=== PATIENT | female | born 1950 | race Caucasian/White ===

== ENCOUNTER 2017-12-20 09:19 | Day surgery (SDC) | payer MEDICARE, OTHER ==
[~2017-12-20] VITALS: Ht 157.5 cm; Wt 72.0 kg
[2017-12-20] MEDS ORDERED: IOHEXOL 350 MG/ML 100 ML BTL (for Cath Lab) OTHER ONE (09:20)
[2017-12-20 10:30] VITALS: BP 116/67; PULSE 63; RESP 18; O2SAT 100
[2017-12-20 10:41] LABS: AUTOMATED NEUTROPHIL # 3.1 TH/MM3 (1.8-7.7); BASOPHIL % 0.3 % (0.0-2.0); EOSINOPHIL # 0.1 TH/MM3 (0-0.4); EOSINOPHIL % 2.4 % (0.0-4.0); HEMATOCRIT 38.8 % (35.0-46.0); HEMOGLOBIN 13.3 GM/DL (11.6-15.3); LYMPH % 32.5 % (9.0-44.0); LYMPHOCYTE # 1.8 TH/MM3 (1.0-4.8); MEAN CELL VOLUME 99.4 FL (80.0-100.0); MEAN CORPUSCULAR HEMOGLOBIN 34.1 PG (27.0-34.0); MEAN CORPUSCULAR HGB CONC 34.3 % (32.0-36.0); MONO % 10.5 % (0.0-8.0); MONOCYTE # 0.6 TH/MM3 (0-0.9); NEUT % 54.3 % (16.0-70.0); PLATELET COUNT 230 TH/MM3 (150-450); RED CELL DISTRIBUTION WIDTH 13.1 % (11.6-17.2); WHITE BLOOD COUNT 5.6 TH/MM3 (4.0-11.0)
[2017-12-20 10:50] LABS: PROTHROMBIN TIME - PATIENT 10.3 SEC (9.8-11.6)
[2017-12-20] MEDS ORDERED: LIPI10TA PO (10:54)
[2017-12-20] MEDS ORDERED: TOPI25TA7 PO (10:54)
[2017-12-20] MEDS ORDERED: PROP10TA6 PO (10:54)
[2017-12-20] MEDS ORDERED: ASPI-183 PO (10:54)
[2017-12-20] MEDS ORDERED: PREV15CA20 PO (10:54)
[2017-12-20] MEDS ORDERED: METH10TA PO (10:54)
[2017-12-20] MEDS ORDERED: CYCL5TAB PO (10:54)
[2017-12-20 11:00] LABS: CALCIUM 9.2 MG/DL (8.5-10.1); CREATININE 1.07 MG/DL (0.50-1.00)
[2017-12-20] MEDS ORDERED: HYDROCORTISONE SOD SUCCINATE 100 MG VIAL IV SCH (11:30)
[2017-12-20] MEDS ORDERED: NS 1000P @30 MLS/HR (KVO) IV SCH (11:30)
[2017-12-20] MEDS ORDERED: HEPARIN-NS/PF FLUSH BAG 2,000 ML IV FLUSH ONE (11:39)
[2017-12-20] MEDS ORDERED: HYDROCORTISONE SOD SUCCINATE 100 MG VIAL ONE (11:45)
[2017-12-20] MEDS ORDERED: diphenhydrAMINE HCL 50 MG/ML VIAL ONE (11:54)
--- NOTE | 2017-12-20 12:38 | CATHPROC ---
[place] HIS Report Study Information Study Number Admission Scheduled Start Study Start [id number] Dec 20 2017 9:19AM 12/20/2017 Dec 20 2017 11:30AM Study Type [place] Service Left/Possible PCI Cardiac Catheterization Admit Source Facility Department Other [facility] - Marketing Systems Analyst Physician and Clinical Staff Initial Beena Venegas Talcer Gladys Boyd,RN Other Ester Bellamy ,RT(R) Recorder Sarah Dubois RCIS TECH2 Recorder Ester Bellamy ,RT(R) Scrub Gladys MckinleyRT(R) Procedures Performed Procedure Location (Site) Vessel Name Angiogram LV LV Ventricle Coronary Angiograms LCA Left Coronary Coronary Angiograms RCA Right Coronary L Heart Cath Equipment Time Environmental Maintenance Worker Description Size Mfg Part Number Used/Scraped STARCLOSE, VASCULAR CLOSER [id number] 12:13 [employer] FR 6 Used SYSTEM *[id number] TRANSDUCER, TRUWAVE [id number] 11:31 ROBERTS DURAN * Used W/STOCKCOCK *[id number] 534-620T *[id number] 534-621T *[id number] PIGTAIL ANG. 145 INFINITI 534-652S CATHETER *[id number] 11:31 [employer] IND[employer] PACK, CCL CUSTOM * Used *[id number] 11:31 MEDLINE PACER PEN, SKIN DUAL W/ RULER * Used *[id number] 11:31 [employer] PTY MEDICAL SHEATH, FR6.5 PRELUDE 11CM FR 6.5 038ACT Used *[id number] 11:31 [employer] PTY MEDICAL WIRE, 3MMJ .035 180CM 180CM Used *[id number] 11:31 NAMIC MANIFOLD, 4 PORT * Used *[id number] 11:31 [employer] OMNIPAQUE, 350 MG, 150ML 150ML [id number] Used [id number] 11:31 [employer] BLANK[employer],WARM AIR CCL * Used *[id number] History: Current Medications Medication Dosage/Unit Route Frequency Last Date/Time Taken Statins (any) ASA History: Allergies Allergy Reaction Tetracyclines Sulfa (Sulfonamide Antibiotics) codeine oxycodone acetaminophen epinephrine butorphanol lubiprostone History: Risk Factors Family History of Hypertension Dyslipidemia Previous NM Previous Heart Failure Premature CAD Yes Yes Yes No No Prior Valve Prior PCI Prior CABG Surgery No No No Cerebrovascular Peripheral Artery Chronic Lung On Dialysis Diabetes Disease Disease Disease No No No No No History: Stress Tests Stress or Imaging Studies Performed Yes Standard Exercise Stress Test No Stress Echo No Stress Test SPECT Stress Test SPECT Result Stress Test SPECT Ischemia Risk/Extent Yes Positive High Stress Test CMR No Cardiac CTA Coronary Calcium Score No No History: Other Current Smoker No Labs Hgb (g/dl) Hct (%) WBC (l/cumm) Platelets (thousands) 11.60-17.00 35.00-51.00 4.00-11.00 150.00-450.00 13.3 38.8 5.6 230 BUN (mg/dl) Creatinine (mg/dl) BUN:Creatinine (1:x) 7.00-18.00 0.50-1.30 10.00-20.00 18 1.1 16.4 INR (PTT:PT) 0.90-1.10 1 CPK-MB (ng/ML) 0.50-3.60 Not Drawn Medication Medication Total Dose (Bolus/Oral) Medication Total Dosage/Unit 1% XYLOCAINE 20 mL BENADRYL 25 mg FENTANYL 50 mcg NTG (IC) 150 mcg SOLU-CORTEF 100 mg Medications (Bolus/Oral) Medication Time Given Dosage/Unit Administered By Reason SOLU-CORTEF 12/20/2017 11:47:00 AM 100 mg Hesher, Gladys 100 mg SOLU-CORTEF given in lab by Gladys Boyd RN in Left Antecubital via Peripheral IV. Ordered by Beena Martinez. FENTANYL 12/20/2017 11:54:00 AM 50 mcg Hesher, Gladys 50 mcg FENTANYL given in lab by Gladys Boyd, ROSEMARIE via Peripheral IV. Ordered by Beena Martinez. BENADRYL 12/20/2017 11:55:00 AM 25 mg Hesher, Gladys 25 mg BENADRYL given in lab by Gladys Boyd, ROSEMARIE via Peripheral IV. Ordered by Beena Martinez. 1% XYLOCAINE 12/20/2017 11:57:03 AM 20 mL Beena Martinez 20 mL 1% XYLOCAINE given in lab by Beena Martinez via Subcutaneous. Ordered by Beena Martinez. NTG (IC) 12/20/2017 12:02:53 PM 150 mcg Beena Martinez 150 mcg NTG (IC) given in lab by Beena Martinez via Intra-coronary. Ordered by Beena Martinez. Medication (Drip) Medication Time Given Dosage/Unit Concentration/Unit Diluent (ml) Solution IV Solutions 12/20/2017 11:34:00 AM 50 mL (IV) NaCl .9 IV Solutions given in lab by Gladys Boyd RN in Left Antecubital via Peripheral IV. Pump/Drip Flow using NaCl .9. Ordered by Beena Martinez. Initial Case Assessment Cardiovascular HR NIBP Chest Pain 80 142/70 0 Edema Present Skin color Skin None Normal Warm Dry Circulatory - Right Pulses Dorsalis Pedis Femoral 2 3 Scale (0,1,2,3,4,d) Circulatory - Left Pulses Dorsalis Pedis Femoral 2 3 Scale (0,1,2,3,4,d) Circulatory - Lower Extremities Color Lower Right Color Lower Left Normal Normal Neurological State Oriented to time-place- Alert Moves all extremities person Respiration - General Respiration Rate SpO2 (%) (B/min) 11 100 Final Case Assessment Cardiovascular HR NIBP Chest Pain 67 129/72 0 Edema Present Skin color Skin None Normal Warm Dry Circulatory - Right Pulses Dorsalis Pedis Femoral 2 3 Scale (0,1,2,3,4,d) Circulatory - Left Pulses Dorsalis Pedis Femoral 2 3 Scale (0,1,2,3,4,d) Circulatory - Lower Extremities Color Lower Right Color Lower Left Normal Normal Neurological State Oriented to time-place- Alert Moves all extremities person Respiration - General Respiration Rate SpO2 (%) (B/min) 20 99 Chronological Log Time Study Chronological Log IV Solutions given in lab by Gladys Boyd, ROSEMARIE in Left Antecubital via Peripheral IV. Pump/Dri p Flow using NaCl .9. 11:34:00 Ordered by Beena Martinez. 11:34:32 Patient arrived via Bed. 11:34:34 Patient Name, D.O.B, / Armband Verified By R.N. Vitals capture started with the following parameters, Patient=Adult, Interval=5 min, Initial Pr aagewm=759 mmHg, 11:39:11 Deflation Rate=5 mmHg, Cuff placed on Right Arm 11:39:53 HR=73 bpm, TRVP=927/78 mmhg, LxU9=997.0 %, Resp=8 B/min 11:44:01 Pre-op and post- op instructions given; patient acknowledges understanding of instructions. 11:44:02 Verbal Stimulation=2 Physical Stimulation=2 Airway=2 Respiration=2 TOTAL=8. (0=absent, 1=li mited, 2=present) 11:44:19 Presedation assessment performed by Marketing Systems Analyst RN. 11:44:21 Patient has been NPO for More than 6Hrs. 11:44:22 Skin Breakdown- none per patient 11:44:24 Lulu Prominences Protected 11:44:27 A # 20 IV was noted in the Antecubital (left). Grade = 0 11:44:50 HR=65 bpm, AGIS=905/70 mmhg, SrJ3=001.0 %, Resp=9 B/min, Pain=0, Rey=8, Carrizales=2 11:45:00 MD arrived. 11:46:53 Consent signed by the physician and the patient and verified by the Marketing Systems Analyst staff. 100 mg SOLU-CORTEF given in lab by Gladys Boyd, RN in Left Antecubital via Peripheral IV. Or dered by Juan, 11:47:00 [facility]. 11:48:22 History and physical on the chart or being dictated. Assessment: Initial Case, HR=80 BPM, QTOB=330/70 mmhg, Chest Pain=0, Edema=None, Color=Normal, Skin = Warm, Dry Right Pulses: Kuldip Ped=2, Femoral=3 Left Pulses: Kuldip Ped=2, Femoral=3 11:48:24 Lower Right Extremities: Color=Normal Lower Left Extremities: Color=Normal Neurological: State=Alert, Ox3, FOFANA Respiration: Resp=11 B/min, UxT9=703 % 11:49:02 Bilateral groins prepped with 2% chlorhexidine, and draped after a 3 minute waiting time. 11:49:49 HR=65 bpm, QHXH=997/75 mmhg, ChB9=225.0 %, Resp=15 B/min, Pain=0, Rey=8, Carrizales=2 Time Out. Correct patient, correct procedure, correct physician, power injector loaded with con trast with surgical team 11:53:46 present. Time Out Concurred by MD and individual staff in procedure. 11:54:00 50 mcg FENTANYL given in lab by Gladys Boyd, RN via Peripheral IV. Ordered by Juan As hraf. 11:54:51 HR=67 bpm, QQLS=512/77 mmhg, WbF7=810.0 %, Resp=20 B/min, Pain=0, Rey=8, Carrizales=2 11:55:00 25 mg BENADRYL given in lab by Gladys Boyd, ROSEMARIE via Peripheral IV. Ordered by Apolinar Martinez. 11:55:27 Reference ECG taken 11:55:34 Pressure channel 1 zeroed. 11:56:06 Case Start 11:57:03 20 mL 1% XYLOCAINE given in lab by Beena Martinez via Subcutaneous. Ordered by Domenico Martinez af. 11:59:00 Access site was Right Femoral Artery. 11:59:38 A SHEATH, FR6.5 PRELUDE 11CM FR 6.5 was advanced into the Fem Art (right) using the Percuta neous technique. 11:59:52 HR=64 bpm, WYJW=506/73 mmhg, SpO2=99.0 %, Resp=14 B/min, Pain=0, Rey=8, Carrizales=2 A JL 4.0 INFINITI CATHETER FR 6 was advanced over a wire. OMNIPAQUE, 350 MG, 150ML 150ML was us ed for 12:01:08 injections. Recorded Pressure: Ao, HR=65, Condition=Condition 1 12:02:03 (Aorta) Ao 140/66/97 12:02:53 150 mcg NTG (IC) given in lab by Beena Martinez via Intra-coronary. Ordered by Domenico Martinez af. 12:03:41 The LCA was injected and visualized at various angles. OMNIPAQUE, 350 MG, 150ML 150ML used . 12:04:51 HR=64 bpm, FSHW=224/71 mmhg, SpO2=99.0 %, Resp=14 B/min, Pain=0, Rey=8, Carrizales=2 12:05:56 Catheter was removed A JR 4.0 INFINITI CATHETER FR 6 was advanced over a wire. OMNIPAQUE, 350 MG, 150ML 150ML was us ed for 12:06:00 injections. 12:08:35 The RCA was injected and visualized at various angles. OMNIPAQUE, 350 MG, 150ML 150ML used . 12:09:03 Catheter was removed A PIGTAIL ANG. 145 INFINITI CATHETER FR 6 was advanced over a wire. OMNIPAQUE, 350 MG, 150ML 15 0ML was 12:09:09 used for injections. 12:09:46 HR=69 bpm, ASNM=931/82 mmhg, SpO2=98.0 %, Resp=12 B/min, Pain=0, Rey=8, Carrizales=2 Recorded Pressure: LV, HR=70, Condition=Condition 1 12:10:28 (Left Ventricle) LV 151/7/17 12:11:16 The LV was injected at 10 cc/sec for a total of 24. OMNIPAQUE, 350 MG, 150ML 150ML used. Recorded Pressure: LV, Ao, HR=68, Condition=Condition 1 12:12:33 (Left Ventricle) LV 139/5/22, (Aorta) Ao 139/66/98 12:13:04 Catheter was removed 12:13:53 An injection in the Fem Art (right) was made through the SHEATH, FR6.5 PRELUDE 11CM FR 6.5 . 12:14:21 STARCLOSE, VASCULAR CLOSER SYSTEM FR 6 placement in the Fem Art (right) 12:14:51 HR=66 bpm, KYBN=583/72 mmhg, YxS0=063.0 %, Resp=15 B/min, Pain=0, Rey=8, Carrizales=2 12:18:34 Case End Assessment: Final Case, HR=67 BPM, TXBB=025/72 mmhg, Chest Pain=0, Edema=None, Color=Normal, S kin = Warm, Dry Right Pulses: Kuldip Ped=2, Femoral=3 Left Pulses: Kuldip Ped=2, Femoral=3 12:18:38 Lower Right Extremities: Color=Normal Lower Left Extremities: Color=Normal Neurological: State=Alert, Ox3, FOFANA Respiration: Resp=20 B/min, SpO2=99 % 12:19:50 HR=66 bpm, MFXF=393/74 mmhg, MyU9=920.0 %, Resp=8 B/min, Pain=0, Rey=8, Carrizales=2 12:21:21 Catheter(s) removed without difficulty 12:21:24 Sterile dressing applied to site 12:21:24 No case complications noted. 12:21:25 Cine recording checked. 12:21:26 Bedside Report will be given. 12:21:36 A Left Heart Cath was performed. 12:24:22 Vitals capture stopped. 12:26:51 Patient moved to stretcher End Study - Contrast Media Used In Study Contrast Total Opened (mL) Total Used (mL) Total Wasted (mL) Omnipaque 70 70 0 End Study - Maximum Contrast Load Max Contrast Load (mL) 327.3 End Study - Radiation Exposure Fluoro Time (minutes) 2.0 End Study - Patient Disposition Complications Transferred To Interventional Outcome No Telemetry Bed No attempt made
[2017-12-20] MEDS ORDERED: BACITRACIN OINT 0.9 GM PKT TOP ONE (13:00)
[2017-12-20] MEDS ORDERED: ONDANSETRON HCL 4 MG/2 ML VIAL IV PUSH PRN (13:00)
[2017-12-20] MEDS ORDERED: SODIUM CHLOR 0.9% 1000 ML INJ 1,000 ML IV SCH (13:00)
[2017-12-20] MEDS ORDERED: SODIUM CHLOR 0.9% 250 ML INJ 250 ML IV PRN (13:00)
[2017-12-20] MEDS ORDERED: MISC INFORMATION XX ONE (13:00)
[2017-12-20] MEDS ORDERED: ATROPINE SULFATE 1 MG/ML VIAL IV PUSH PRN (13:00)
--- NOTE | 2017-12-20 13:08 | EKG ---
Date Performed: 12/20/2017 Time Performed: 10:54:02 PTAGE: 67 years EKG: Baseline artifact present Sinus rhythm . Anterior T wave changes are nonspecific Low QRS voltages in precordial leads Borderline ECG NO PREVIOUS TRACING DOCTOR: Jd Kirk Interpretating Date/Time 12/20/2017 13:07:50
--- NOTE | 2017-12-20 13:11 | MA ---
cc: Beena Martinez MD, Ashraf S MD Melo, Haroldo MD DATE: 12/20/2017 DESCRIPTION OF PROCEDURE: 1. Left heart catheterization. 2. Coronary arteriogram. 3. Left ventriculogram. 4. Right femoral arteriogram. 5. Right femoral arteriotomy site closure using a StarClose device. LEACHER: Chasity Martinez MD EQUIPMENT USED: 6-[place] short sheath, 0.035 J guidewire, 6-[place] JL4, JR4, and pigtail diagnostic catheters. INDICATIONS: Presentation with progressive dyspnea on exertion and abnormal nuclear stress study for 2 areas of ischemia, but with transient ischemic dilatation noted for which, because of her persistent symptoms and the high risk criteria of her stress test, she was advised to proceed with a cardiac catheterization. PROCEDURE: After obtaining informed consent, the right groin was prepped in the usual sterile fashion. 15 mL of 1% lidocaine used for local anesthesia. Using the modified Seldinger technique, the femoral artery was cannulated and a 6-[place] sheath was inserted in the right femoral artery. Using the above-mentioned diagnostic catheter and selective coronary angiograms were performed. This was followed by left ventriculogram performed in the FAGAN view at 30 degree angle. At the end of the procedure, right femoral system was injected revealing no significant disease and a StarClose device was applied achieving adequate hemostasis. The patient tolerated the procedure well without acute complication at the time of dictation. CARDIAC CATHETERIZATION FINDINGS: HEMODYNAMICS: Aortic pressure was 140/70 mmHg. Mean aortic pressure was 93 mmHg. There was no gradient across the aortic valve. Left ventricular end diastolic pressure was around 24 mmHg. CORONARY ARTERIES: The left main artery arose from the left sinus of Valsalva and was relatively short and had minimal irregularities of less than 10%. The left anterior descending artery branched from the left main artery, had diffuse mid disease ranging between 20-40%. First diagonal branch had minimal irregularities of less than 20%. Other diagonal septal branches have minimal irregularities of less than 10%. The LAD extended distally to wrap around the apex. Ramus intermediate artery branched from the left main artery, had an ostial 20% disease. It extended in the PLV area with mild luminal irregularities of less than 10%. Left circumflex artery branched from the left main artery. I gave a high atrial branch. It bifurcated in the midportion to an OM in the AV groove and the AV groove gave a small PLV branch distally with minimal irregularities of less than 20%. Right coronary artery arose from the right sinus of Valsalva. This was a big dominant vessel, had an ostial 20% disease, mid 20-30% disease. Distally, it gave a big PLV and PDA arteries that had mild luminal irregularities of less than 20%. Two mid RV branches had mild diffuse irregularities of less than 20%. LEFT VENTRICULOGRAM: The left ventriculogram revealed adequate wall motion, preserved systolic function, ejection fraction visual estimate is around 60%. There was a subtle prolapse of the posterior leaflet noted. CONCLUSIONS OF THE CARDIAC CATHETERIZATION: 1. Mild epicardial coronary artery disease in a dominant RCA system. 2. Subtle mitral valve prolapse of the posterior leaflet with trace mitral regurgitation. 3. Normal left ventricular systolic function. 4. Elevated left ventricular end diastolic pressure at 24 mmHg. RECOMMENDATIONS: The recommendations will be medical therapy with tight control of risk factors. The mitral valve prolapse can be contributing to some of her symptoms. She is to continue on current antiplatelet low dose aspirin and statin as well as Cardizem-CD. Monitor her blood pressure response as an outpatient. Monitor clinical response as an outpatient. Continue with tight control of risk factors including complete cessation of smoking as well. Monitor her clinical response, as an outpatient. She is to continue on antiplatelet therapy (low dose aspirin once daily). Continue on statins and continue on her current beta joanie (Propranolol). MD SOLO Spring/DL , 12:35 PM , 01:09 PM
== END 2017-12-20 16:30 | disposition home or self-care (01) ==
LOC: HDOC 09:19 → HDIC 09:20 → HDOC 16:30
PROVIDERS: ATTEND Internal Medicine Interventional Cardiology
DX: I25.10 Atherosclerotic heart disease of native coronary artery without angina pectoris (principal); I34.1 Nonrheumatic mitral (valve) prolapse; I34.0 Nonrheumatic mitral (valve) insufficiency; R55 Syncope and collapse; E78.5 Hyperlipidemia, unspecified; K21.9 Gastro-esophageal reflux disease without esophagitis; R42 Dizziness and giddiness; M51.36 Other intervertebral disc degeneration, lumbar region; Z01.810 Encounter for preprocedural cardiovascular examination; Z01.818 Encounter for other preprocedural examination
CPT/HCPCS: 80048; 85025; 85610; 85730; 93005; 93458; C1760; C1769; C1893; G0269; J1200; J1644; J1720; J3010; Q9967